=== PATIENT | female | born 1985 | race Caucasian/White ===

== ENCOUNTER → 2020-10-31 14:29 | Outpatient (CLI) | payer OTHER, SELFPAY ==
[2020-10-31 15:24] LABS: Add Manual Diff / Slide Review NO; Basophils Absolute Auto 0 /uL (0-100); Basophils Percent Auto 0.2 % (0-2); Eosinophils Absolute Auto 0 /uL (0-450); Eosinophils Percent Auto 0.2 % (2-4); Hematocrit 35.2 % (36-46); Lymphocytes Absolute Auto 1600 /uL (1100-4500); Lymphocytes Percent Auto 21.8 % (25-40); Mean Corpuscular HGB Conc 34.1 % (30-36); Mean Corpuscular Hemoglobin 31.3 PG (26-34); Mean Corpuscular Volume 91.6 fL (80-100); Monocytes Absolute Auto 300 /uL (0-900); Monocytes Percent Auto 3.6 % (3-14); Neutrophils Absolute Auto 5500 /uL (1500-7000); Neutrophils Percent Auto 74.2 % (50-75); Platelet Count 223 X10^3/uL (150-400); Red Blood Cell Count 3.84 X10^6/uL (4.0-5.2); Red Cell Distribution Width 12.6 % (11.6-14.8); White Blood Cell Count 7.4 X10^3/uL (4.5-11.0)
[2020-10-31 16:05] LABS: Hepatitis B Surface Antigen NEGATIVE s/c (NEGATIVE)
[2020-10-31 16:23] LABS: HIV 1 & 2 Ab/Ag 4th Gen Combo NEGATIVE (NEGATIVE); Hep C Virus Ab w/Reflex Quant NEGATIVE s/c (NEGATIVE)
[2020-11-01 08:13] LABS: RPR Screen Non Reactive (Non Reactive)
[2020-11-01 11:10] LABS: Varicella IgG Antibody 1082 index (Immune >165)
== END ==
PROVIDERS: Referring Provider Family Medicine; Visit Provider Family Medicine
DX: Z34.82 Encounter for supervision of other normal pregnancy, second trimester (principal)
CPT/HCPCS: 36415; 80055; 86787; 86803; 86850; 86900; 86901; 87389

== ENCOUNTER → 2020-11-16 10:14 | Outpatient (CLI) | payer OTHER, SELFPAY ==
--- NOTE | 2020-11-16 10:16 | DI.US.S_ITS ---
PROCEDURE: US OB >= 14 WEEKS FETUS INDICATIONS: ANATOMY OUTSIDE/PRIOR DATING DATA: Last menstrual period (LMP): 07/03/2020 . LMP-based estimated date of delivery (DUSTY): 06/10/2020 . First dating scan (date and location): 11/16/2020, [facility] Estimated date of delivery (DUSTY) from first dating scan: 04/04/2021 . TECHNIQUE: Real-time scanning was performed of the fetus, with image documentation and biometric measurements. Endovaginal scanning: Not required COMPARISON: None. FINDINGS: General: A single living intrauterine gestation is present. Presentation: Vertex. Placenta: Placental position is posterior , without previa. Amniotic fluid index: 13.6 cm, normal range is 5-24 cm. heart rate: 137 beats per minute. Maternal cervical canal: 4.7 cm long. Normal lower limit is 2.5 cm. biometrics: Biparietal diameter: 4.6 cm, 19 weeks 5 days Head circumference: 17.8 cm, 20 weeks 2 days Abdominal circumference: 15.1 cm, 20 weeks 3 days Femur length: 3.3 cm, 20 weeks 1 day Estimated gestational age from initial scan: not applicable. Composite gestational age from present scan: 20 weeks 1 day Estimated weight and percentile: 343 g, 89th percentile Measurement variability for biometric dating: +/- 7 days from 14 weeks to 15 weeks 6 days gestation, +/- 10 days from 16 weeks to 21 weeks 6 days gestation, +/- 2 weeks from 22 weeks to 27 weeks 6 days gestation, +/- 3 weeks for 28 weeks gestation or later. weight reference: 4500 g or EFW >90/95% is considered macrosomia or large for gestational age. EFW <10% is small for gestational age. EFW 5% or less is considered intra-uterine growth restriction. Anatomic survey: Neuro: Ventricles are non-dilated at less than 10 mm. Cisterna magna is normal at 3-11 mm. Cerebellum is normal in size and morphology. Nuchal skin fold: Normal at less than 6 mm between 14-21 weeks gestational age. Face: Nose and lips, facial profile are normal. Spine: No evidence for spina bifida. Heart: 4-chambered heart is present, with normal ventricular outflow tracts. Diaphragm: Diaphragm is intact. Stomach: Left-sided stomach is present. Kidneys: No hydronephrosis. Normal is less than 5 mm in 2nd trimester, less than 7 mm in 3rd trimester. Cord: 3-vessel cord has orthotopic insertion. Bladder: Normal in size. Extremities: All 4 extremities identified. IMPRESSION: 1. Living 2nd trimester intrauterine . 2. Current ultrasound age is 5 days greater than clinical age based on last menstrual period. There is no prior ultrasound for comparison. 3. Normal anatomy scan. Dictated by: Antonio Jonas M.D. on 11/16/2020 at 12:40 Approved by: Antonio Jonas M.D. on 11/16/2020 at 12:47
== END ==
PROVIDERS: Referring Provider Family Medicine; Visit Provider Family Medicine
DX: Z34.82 Encounter for supervision of other normal pregnancy, second trimester (principal); Z3A.20 20 weeks gestation of pregnancy
CPT/HCPCS: 76811

== ENCOUNTER → 2020-12-30 10:15 | Outpatient (CLI) | payer OTHER, SELFPAY ==
[2020-12-30 10:40] LABS: RBC Urine None Seen (0-5/HPF)
[2020-12-30 10:47] LABS: Appearance Urine UA CLEAR; Bilirubin Urine UA NEGATIVE (NEGATIVE); Color Urine UA YELLOW; Glucose Urine UA NEGATIVE (Negative); Ketones Urine UA NEGATIVE (NEGATIVE); Leukocyte Esterase Urine UA TRACE (NEGATIVE); Nitrite Urine UA NEGATIVE (Negative); Occult Blood Urine UA NEGATIVE (Negative); Protein Urine UA NEGATIVE (Negative); Specific Gravity Urine UA <=1.005 (1.000-1.035); Urobilinogen Urine UA 0.2 E.U./dL (0.2)
[2020-12-30 10:57] LABS: Bacteria Urine Moderate (10-30); Squamous Epithelial Cell Urine 1-5 /HPF (0-5/HPF); WBC Urine 1-5/HPF (0-5/HPF)
[2020-12-30 11:54] LABS: Add Manual Diff / Slide Review NO; Basophils Absolute Auto 0 /uL (0-100); Basophils Percent Auto 0.2 % (0-2); Eosinophils Absolute Auto 0 /uL (0-450); Eosinophils Percent Auto 0.3 % (2-4); Hematocrit 34.5 % (36-46); Lymphocytes Absolute Auto 1500 /uL (1100-4500); Lymphocytes Percent Auto 19.4 % (25-40); Mean Corpuscular HGB Conc 34.7 % (30-36); Mean Corpuscular Hemoglobin 32.4 PG (26-34); Mean Corpuscular Volume 93.3 fL (80-100); Monocytes Absolute Auto 300 /uL (0-900); Monocytes Percent Auto 3.6 % (3-14); Neutrophils Absolute Auto 5900 /uL (1500-7000); Neutrophils Percent Auto 76.5 % (50-75); Platelet Count 224 X10^3/uL (150-400); Red Cell Distribution Width 12.3 % (11.6-14.8); White Blood Cell Count 7.8 X10^3/uL (4.5-11.0)
[2020-12-30 12:48] LABS: GTT (PREG) 1 Hour PP 50gm Dose 105 mg/dL (76-139)
== END ==
PROVIDERS: PCP Family Medicine; Referring Provider Family Medicine; Visit Provider Family Medicine
DX: Z34.90 Encounter for supervision of normal pregnancy, unspecified, unspecified trimester (principal); R10.9 Unspecified abdominal pain; Z87.442 Personal history of urinary calculi; Z87.59 Personal history of other complications of pregnancy, childbirth and the puerperium
CPT/HCPCS: 36415; 81001; 82950; 85025; 87086

== ENCOUNTER → 2021-01-02 09:36 | Outpatient (CLI) | payer OTHER, SELFPAY ==
--- NOTE | 2021-01-02 | DI.US.S_ITS ---
PROCEDURE: US RENAL COMPLETE INDICATIONS: FLANK PAIN. HISTORY OF KIDNEY STONES TECHNIQUE: Real-time scanning was performed of the kidneys and bladder, with image documentation. COMPARISON: [facility], US, US OB >= 14 WEEKS FETUS, 11/16/2020, 10:28. [facility], RG, US OB FIRST TRIMESTER W TRANSVAG, 09/23/2020, 22:40. FINDINGS: Kidneys: Kidneys are normal in size. Right kidney measures 10.8 cm long; left kidney measures 12.5 cm long. Right renal cortical thickness is 1.1 cm; left renal cortical thickness is 1.1 cm. Renal cortical echotexture is normal. There is mild left-sided hydronephrosis. Within the left mid kidney, there is a 7 mm nonobstructing shadowing kidney stone. Within the left superior kidney, there is a nonshadowing hyperechoic focus that measures 5 x 9 x 4 mm. Bladder: Pre-void bladder volume is 188 mL. Post-void residual is 0 mL. Pre-void images demonstrate no intraluminal masses or stones. Within the urinary bladder, there is mild echogenic debris seen. On pre-void images, only the right ureteral jet can be seen with color Doppler interrogation. (Of note, ureteral jets may not be detectable in up to 25% of cases due to insufficient differences in specific gravity between ureteral and bladder urine). Miscellaneous: No free pelvic fluid. This patient is , with a measured heart rate of 149 beats per minute. IMPRESSION: Mild right-sided hydronephrosis. There is a mild amount of debris seen within the urinary bladder. Please correlate with UTI. There is a 7 mm nonobstructing left-sided kidney stone. Also on the left, there is a 9 mm nonshadowing hyperechoic focus, which most likely relates to a benign, fat containing lesion. Dictated by: Hayes Ramon M.D. on 01/02/2021 at 9:48 Approved by: Hayes Ramon M.D. on 01/02/2021 at 9:52
== END ==
PROVIDERS: PCP Family Medicine; Referring Provider Family Medicine; Visit Provider Family Medicine
DX: N13.30 Unspecified hydronephrosis (principal); N20.0 Calculus of kidney; R10.30 Lower abdominal pain, unspecified; Z87.442 Personal history of urinary calculi
CPT/HCPCS: 76770

== ENCOUNTER → 2021-02-10 10:35 | Outpatient (CLI) | payer OTHER, SELFPAY ==
--- NOTE | 2021-02-10 10:37 | DI.US.S_ITS ---
PROCEDURE: US OB LIMITED INDICATIONS: LARGE FOR DATES OUTSIDE/PRIOR DATING DATA: Last menstrual period (LMP): July 03, 2020 . LMP-based estimated date of delivery (DUSTY): April 09, 2021 . First dating scan (date and location): [facility], November 16, 2020 . Estimated date of delivery (DUSTY) from first dating scan: April 04, 2021 . TECHNIQUE: Real-time scanning was performed of the fetus, with image documentation and biometric measurements. COMPARISON: None. FINDINGS: General: A single living intrauterine gestation is present. Presentation: Cephalic. Placenta: Placental position is posterior , without previa. Amniotic fluid index: 14.9 cm, normal range is 5-24 cm. heart rate: 132 beats per minute. Maternal cervical canal: 3.8 cm long. biometrics: Biparietal diameter: 8.5 cm Head circumference: 30.4 cm Abdominal circumference: 29.1 cm Femur length: 6.1 cm Estimated gestational age from initial scan: not applicable. Composite gestational age from present scan: 33 weeks, 1 day Other: Not applicable. IMPRESSION: Single intrauterine gestation as detailed above. Dictated by: Tim Nogueira M.D. on 02/10/2021 at 15:15 Approved by: Tim Nogueira M.D. on 02/10/2021 at 15:18
== END ==
PROVIDERS: PCP Family Medicine; Referring Provider Family Medicine; Visit Provider Family Medicine
DX: O26.843 Uterine size-date discrepancy, third trimester (principal); Z36.88 Encounter for antenatal screening for fetal macrosomia; Z3A.33 33 weeks gestation of pregnancy
CPT/HCPCS: 76815

== ENCOUNTER → 2021-03-03 13:11 | Outpatient (CLI) | payer OTHER, SELFPAY ==
[2021-03-07 10:11] LABS: Strep Grp B PCR POS for Grp B Strep
== END ==
PROVIDERS: PCP Family Medicine; Visit Provider Family Medicine
DX: Z34.90 Encounter for supervision of normal pregnancy, unspecified, unspecified trimester (principal); Z3A.35 35 weeks gestation of pregnancy
CPT/HCPCS: 87653

== ENCOUNTER 2021-03-21 07:33 | Outpatient (CLI) | payer OTHER, SELFPAY ==
[2021-03-21 08:21] LABS: Hemoglobin 12.4 g/dL (12.0-16.0); Red Blood Cell Count 3.95 X10^6/uL (4.0-5.2)
[2021-03-21 08:24] LABS: Add Manual Diff / Slide Review NO; Basophils Absolute Auto 0 /uL (0-100); Basophils Percent Auto 0.4 % (0-2); Eosinophils Absolute Auto 0 /uL (0-450); Eosinophils Percent Auto 0.2 % (2-4); Hematocrit 35.9 % (36-46); Lymphocytes Absolute Auto 1700 /uL (1100-4500); Lymphocytes Percent Auto 24.1 % (25-40); Mean Corpuscular HGB Conc 34.6 % (30-36); Mean Corpuscular Hemoglobin 31.4 PG (26-34); Mean Corpuscular Volume 90.8 fL (80-100); Monocytes Absolute Auto 300 /uL (0-900); Neutrophils Absolute Auto 4900 /uL (1500-7000); Neutrophils Percent Auto 70.3 % (50-75); Platelet Count 151 X10^3/uL (150-400); Red Cell Distribution Width 12.7 % (11.6-14.8)
[2021-03-21 08:26] LABS: Alanine Aminotransferase 13 IU/L (<35); Albumin 3.6 g/dL (3.5-5.0); Albumin Globulin Ratio 1.3 (1.0-2.8); Alkaline Phosphatase 97 U/L (38-126); Aspartate Aminotransferase 21 IU/L (14-36); BUN Creatinine Ratio 10.9 (6-22); Bilirubin Total 0.4 mg/dL (0.2-1.3); Blood Urea Nitrogen 6 mg/dL (7-17); Calcium 8.7 mg/dL (8.4-10.2); Carbon Dioxide 17 mmol/L (22-32); Chloride 109 mmol/L (98-107); Estimated Glomerular Filt Rate > 60.0 mL/min (>60); Globulin 2.8 g/dL (1.7-4.1); Glucose 80 mg/dL (70-100); HEMOLYSIS < 15 (0-50); Potassium 3.7 mmol/L (3.4-5.1); Sodium 135 mmol/L (137-145); Total Protein 6.4 g/dL (6.3-8.2)
[2021-03-21 08:31] LABS: Creatinine Urine Random 79.5 mg/dL; Protein (Total) Urine Random 13 mg/dL (0-12); Protein Creatinine Ratio Urine 0.16 GRAM/24H
--- NOTE | 2021-03-21 08:37 | P.TNLD_ITS ---
Visit Information Visit Information Date of evaluation: 03/21/21 Primary OB Provider: Tanya Archibald Reason for Evaluation: Yes non-stress test non-stress test reason: hypertensi on/pre-eclampsia Comments/Additional reasons for admission: Pt is a 35yo at 37w2d who presented for NST and labs for newly diagnosed gestational hypertension. In clinic yesterday, her blood pressure was noted to be elevated. She had her young son with her, and needed to return home for childcare before coming back for NST and labs. Unfortunately, the bridge was then shut-down and she was unable to return. She did check her BP at the drug store last night, and it was in the low 160s over low 100s. At home then her BP was in the 150s/90-low 100s. She denies any headaches, vision changes, RUQ pain, swelling. She is feeling her baby move regularly. No LOF, vaginal bleeding, contractions. [facility] Medical History (Updated 03/21/21 @ 08:40 by Tanya Archibald MD) Abnormal Pap smear of cervix (~1999) AMA (advanced maternal age) multigravida 35+ Genital herpes (~07/2003) Heart palpitations (~2017) SAB (spontaneous ) (~2007) (spontaneous vaginal delivery) Surgical History (Updated 10/28/20 @ 14:25 by Juliet Cole RN) History of removal of skin mole (~2019) S/P dilation and curettage (~2007) Family History (Updated 11/01/20 @ 20:43 by Margot Teran) Father Alcohol abuse by father Mother Diabetes mellitus Grandfather Stroke Grandmother Cancer Breast cancer Grandfather No problems noted. Grandmother Dementia Sister Twin Social History marital status: number of children: 5 household members: spouse and children lives independently: Yes caregiver/support person: No housing: house pets and animals: Yes (2 dogs: safe.) education level: high school occupational status: unemployed (Homemaker.) current occupational exposures/hazards: No special jacqueline needs: No seatbelt use: always do you feel safe at home: Yes Smoking Status: Former smoker (1/2 pack per day) Tobacco: How many years used: 2 quit status: quit date established (Quit 2004.) second hand exposure: Yes alcohol intake: former (pre- : occasional) substance use type: does not use during the past year weight has: remained stable well-balanced diet: daily or most days daily servings fruits/ve-4 caffeine: Yes (X 1 per day) eating out: 4 or more times/week Type(s) of exercise: walking, bicycling (Peloton bike.) and normal ROM and activity (Busy mom to 5 children.) frequency: daily Objective Labs Result Diagrams: 03/21/21 08:19 03/21/21 08:19 Labs: Laboratory Results - last 24 hr 03/21/21 03/21/21 03/21/21 08:19 08:19 08:19 WBC 7.0 RBC 3.95 L Hgb 12.4 Hct 35.9 L MCV 90.8 MCH 31.4 MCHC 34.6 RDW 12.7 Plt Count 151 Neut % (Auto) 70.3 Lymph % (Auto) 24.1 L [place] % (Auto) 5.0 Eos % (Auto) 0.2 L Baso % (Auto) 0.4 Neut # (Auto) 4900 Lymph # (Auto) 1700 [place] # (Auto) 300 Eos # (Auto) 0 Baso # (Auto) 0 Sodium 135 L Potassium 3.7 Chloride 109 H Carbon Dioxide 17 L BUN 6 L Creatinine 0.55 Estimated GFR > 60.0 BUN/Creatinine Ratio 10.9 Glucose 80 Calcium 8.7 Total Bilirubin 0.4 AST 21 ALT 13 Alkaline Phosphatase 97 Total Protein 6.4 Albumin 3.6 Globulin 2.8 Albumin/Globulin Ratio 1.3 U Random Total Protein 13 H Urine Creatinine 79.5 Protein/Creatinin Ratio 0.16 Evaluation Evaluation Baseline heart rate: 150 Variability: Moderate (11-25) monitor accelerations: Present Monitor Decelerations: Absent Category of Tracing: Reactive Diagnosis, Plan/Disposition Final Diagnosis (1) Gestational hypertension: Status: Acute Plan/Disposition Plan: Pt is a 35yo at 37w2d who presented for NST and labs for newly diagnosed gestational hypertension. No evidence of pre-eclampsia/HELLP on labs. BP not in severe range. NST reactive. Recommend induction. Working with L&D on scheduling for this week. Pt safe to return home for now with strict return precautions. Will contact her about timing of induction. OB Disposition: home
== END 2021-03-21 09:40 | disposition home or self-care (01) ==
LOC: LABOR 08:23 → OB 03-22 07:41
PROVIDERS: PCP Family Medicine; Referring Provider Family Medicine; Visit Provider Family Medicine
DX: O13.3 Gestational [pregnancy-induced] hypertension without significant proteinuria, third trimester (principal); Z3A.37 37 weeks gestation of pregnancy
CPT/HCPCS: 59025; 80053; 82570; 84156; 85025; G0378; G0379

== ENCOUNTER 2021-03-24 07:38 | Outpatient (CLI) | payer OTHER, SELFPAY ==
--- NOTE | 2021-03-24 08:09 | P.TNLD_ITS ---
Visit Information Visit Information Date of evaluation: 03/24/21 Primary OB Provider: Tanya Archibald Reason for Evaluation: Yes non-stress test non-stress test reason: hypertension/pre-eclampsia Comments/Additional reasons for admission: Pt is a 35yo at 37w5d here for NST for gestational hypertension. She is feeling her baby move regularly. She denies any LOF or vaginal bleeding. No headaches, vision changes, RUQ pain, worsening edema. [facility] Medical History (Updated 03/21/21 @ 08:40 by Tanya Archibald MD) Abnormal Pap smear of cervix (~1999) AMA (advanced maternal age) multigravida 35+ Genital herpes (~07/2003) Heart palpitations (~2017) SAB (spontaneous ) (~2007) (spontaneous vaginal delivery) Surgical History (Updated 10/28/20 @ 14:25 by Juliet Cole RN) History of removal of skin mole (~2019) S/P dilation and curettage (~2007) Family History (Updated 11/01/20 @ 20:43 by Margot Teran) Father Alcohol abuse by father Mother Diabetes mellitus Grandfather Stroke Grandmother Cancer Breast cancer Grandfather No problems noted. Grandmother Dementia Sister Twin Social History marital status: number of children: 5 household members: spouse and children lives independently: Yes caregiver/support person: No housing: house pets and animals: Yes (2 dogs: safe.) education level: high school occupational status: unemployed (Homemaker.) current occupational exposures/hazards: No special jacqueline needs: No seatbelt use: always do you feel safe at home: Yes Smoking Status: Former smoker (1/2 pack per day) Tobacco: How many years used: 2 quit status: quit date established (Quit 2004.) second hand exposure: Yes alcohol intake: former (pre- : occasional) substance use type: does not use during the past year weight has: remained stable well-balanced diet: daily or most days daily servings fruits/ve-4 caffeine: Yes (X 1 per day) eating out: 4 or more times/week Type(s) of exercise: walking, bicycling (Peloton bike.) and normal ROM and activity (Busy mom to 5 children.) frequency: daily Evaluation Evaluation Baseline heart rate: 140 Variability: Moderate (11-25) monitor accelerations: Present Monitor Decelerations: Absent Category of Tracing: Reactive Diagnosis, Plan/Disposition Final Diagnosis (1) Gestational hypertension: Status: Acute Plan/Disposition Plan: Pt is a 35yo at 37w5d here for NST for gestational hypertension. NST reactive. Labs completed earlier this week reassuring. IOL scheduled for 03/26, pt requested no induction this week after discussion of risks vs benefits. OB Disposition: home
== END 2021-03-24 08:20 | disposition home or self-care (01) ==
LOC: LABOR 08:05 → OB 03-29 07:10
PROVIDERS: PCP Family Medicine; Referring Provider Family Medicine; Visit Provider Family Medicine
DX: O13.3 Gestational [pregnancy-induced] hypertension without significant proteinuria, third trimester (principal); Z3A.37 37 weeks gestation of pregnancy
CPT/HCPCS: 59025; G0378; G0379

== ENCOUNTER 2021-03-26 19:38 | Inpatient (IN) | payer OTHER, SELFPAY ==
[2021-03-26 22:04] LABS: Add Manual Diff / Slide Review NO; Basophils Absolute Auto 0 /uL (0-100); Basophils Percent Auto 0.2 % (0-2); Eosinophils Absolute Auto 0 /uL (0-450); Eosinophils Percent Auto 0.1 % (2-4); Hematocrit 36.7 % (36-46); Hemoglobin 12.7 g/dL (12.0-16.0); Lymphocytes Absolute Auto 2400 /uL (1100-4500); Lymphocytes Percent Auto 26.1 % (25-40); Mean Corpuscular HGB Conc 34.8 % (30-36); Mean Corpuscular Hemoglobin 31.7 PG (26-34); Mean Corpuscular Volume 91.3 fL (80-100); Monocytes Absolute Auto 600 /uL (0-900); Neutrophils Absolute Auto 6200 /uL (1500-7000); Neutrophils Percent Auto 67.6 % (50-75); Platelet Count 169 X10^3/uL (150-400); Red Blood Cell Count 4.02 X10^6/uL (4.0-5.2); Red Cell Distribution Width 12.6 % (11.6-14.8); White Blood Cell Count 9.1 X10^3/uL (4.5-11.0)
[2021-03-26 22:18] LABS: Alanine Aminotransferase 13 IU/L (<35); Albumin 3.6 g/dL (3.5-5.0); Albumin Globulin Ratio 1.2 (1.0-2.8); Alkaline Phosphatase 110 U/L (38-126); Aspartate Aminotransferase 17 IU/L (14-36); Bilirubin Total 0.2 mg/dL (0.2-1.3); Blood Urea Nitrogen 11 mg/dL (7-17); Calcium 9.2 mg/dL (8.4-10.2); Carbon Dioxide 19 mmol/L (22-32); Chloride 108 mmol/L (98-107); Estimated Glomerular Filt Rate > 60.0 mL/min (>60); Globulin 2.9 g/dL (1.7-4.1); Glucose 120 mg/dL (70-100); HEMOLYSIS < 15 (0-50); Potassium 3.6 mmol/L (3.4-5.1); Sodium 133 mmol/L (137-145); Total Protein 6.5 g/dL (6.3-8.2)
[2021-03-26 22:20] LABS: Creatinine Urine Random 39.3 mg/dL; Protein (Total) Urine Random 21 mg/dL (0-12); Protein Creatinine Ratio Urine 0.53 GRAM/24H
[2021-03-26 23:38] LABS: COVID19 -Nasal RAPID Negative (Negative)
[2021-03-27 05:32] LABS: Add Manual Diff / Slide Review NO; Basophils Absolute Auto 0 /uL (0-100); Basophils Percent Auto 0.5 % (0-2); Eosinophils Absolute Auto 0 /uL (0-450); Eosinophils Percent Auto 0.3 % (2-4); Hematocrit 37.6 % (36-46); Lymphocytes Absolute Auto 2000 /uL (1100-4500); Mean Corpuscular HGB Conc 34.6 % (30-36); Mean Corpuscular Hemoglobin 31.6 PG (26-34); Mean Corpuscular Volume 91.2 fL (80-100); Monocytes Absolute Auto 400 /uL (0-900); Monocytes Percent Auto 5.2 % (3-14); Neutrophils Absolute Auto 4800 /uL (1500-7000); Platelet Count 158 X10^3/uL (150-400); Red Blood Cell Count 4.12 X10^6/uL (4.0-5.2); Red Cell Distribution Width 12.6 % (11.6-14.8); White Blood Cell Count 7.3 X10^3/uL (4.5-11.0)
[2021-03-27 05:41] LABS: Aspartate Aminotransferase 16 IU/L (14-36); BUN Creatinine Ratio 16.7 (6-22); Blood Urea Nitrogen 10 mg/dL (7-17); Estimated Glomerular Filt Rate > 60.0 mL/min (>60); Uric Acid 5.4 mg/dL (2.5-6.2)
[2021-03-27] MEDS: LACTATED RINGERS 1,000 ML 100 ML IV (06:40)
[2021-03-27] MEDS: PENICILLIN G POTASSIUM 5,000,000 UNIT in DEXTROSE 5% IN WATER 250 ML IV (06:42)
[2021-03-27 08:19] VITALS: BP 133/88
[2021-03-27] MEDS: OXYTOCIN PREMIX 30 UNIT/500 ML PLAST..BAG IV (09:02)
[2021-03-27] MEDS: PENICILLIN G POTASSIUM 3,000,000 UNIT/50 ML FROZ.PIGGY 100 UNIT IV ×2 (10:56→14:56)
--- NOTE | 2021-03-27 13:33 | P.HPOB_ITS ---
OB HPI Date/Time Date of admission: 03/26/22 Date Patient Seen: 03/27/21 History of Present Condition Chief complaint: INDUCTION DUSTY Calculator Estimated Delivery Date Method Current WG Current Estimate 04/09/21 LMP (Certain) 38w 1d Other Estimates 04/01/21 Ultrasound #1 39w 2d Estimated Gestational Age (weeks): 38w1d : 7 Para: 5 Narrative: Pt is a 35yo at 38w1d here for IOL for gestational hypertension diagnosed at 37wks. Pt declined IOL until this time. Currently asymptomatic without headache, vision changes, RUQ pain, worsening swelling. BPs at home have consistently been in the 140/90s. She is feeling her baby move regularly. No LOF, vaginal bleeding, or contractions prior to admission. Now with regular cramping. otherwise complicated by hx of HSV, on acyclovir prophylaxis. Also with baby at 89th percentile at anatomy scan, 83rd percentile at 32 weeks. care: good care, initiated at week # (10) and pounds weight gain (14) Dating criteria OB: LMP confirmed by 1st trimester US Ultrasounds: normal 1st trimester US and normal mid trimester US (89th percentile size) Obstetrical complications: gestational hypertension Medical complications OB: other (hx of hsv on acyclovir) Indications Indication for induction OB: gestational HTN/pre-eclampsia Preadmission Labs Last OB Lab Results: Blood Type AB Positive 03/26/21 21:00 03/26/21 Antibody Screen Negative 03/26/21 21:00 03/26/21 Hematocrit 37.6 % (36-46) 03/27/21 05:20 03/27/21 Hemoglobin 13.0 g/dL (12.0-16.0) 03/27/21 05:20 03/27/21 Hepatitis B Surface Antigen Negative s/c (NEGATIVE) 10/31/20 14:35 10/31/20 Hepatitis C Antibody Negative s/c (NEGATIVE) 10/31/20 14:35 10/31/20 Rubella Antibody 6.0 IU/mL (>15) L 10/31/20 14:35 10/31/20 Varicella-Zoster IgG Antibody 1082 index (Immune >165) 10/31/20 14:35 10/31/20 Glucose 1 Hour 105 mg/dL (76-139) 12/30/20 11:24 12/30/20 Group B Streptococcus (PCR) Pos for grp b strep H 03/03/21 13:11 03/03/21 -: Chlamydia screen: negative, Gonorrhea screen: negative and Urine: negative Genetic Screens: Cell-free DNA: Normal External Labs -: Urine: negative Prior (ies) Past Pregnancies Del. Date GA/Weeks Labor Lgth Wt Sex Route Outcome Anesthesia Place Delv Breastfeed Preg Comp Name 11/29/05 39.3 10 8 lb 11 oz Male vaginal live - full term e pidural [facility] 12 mos. Acid reflux. other Mitul 04/15/07 40 5 8 lb 9 oz [facility] Marlo 04/05/08 8-12 spontaneous spontaneous 05/01/09 40 5 8 lb 8 oz Male vaginal live - full term ep [facility] 12 mos none Óscar 04/14/11 40 3 8 lb 6 oz Female vaginal live - full term ep [facility] 12 mos. none Baylee 03/03/19 41 1 8 lb 7 oz Male vaginal live - full term ep [facility] 2 yrs post-dates induction [place] Delivery Date: 11/29/05 Last Updated by: Alee Lopez Dr. delivered with vacuum and forceps. Tear w repair. Delivery Date: 04/05/08 Last Updated by: Rosie Berg R.N. SAB with D&C Delivery Date: 03/03/19 Last Updated by: Rosie Berg R.N. *Induction due to Post-dates. Evaluation Evaluation Baseline heart rate: 135 Variability: Moderate (11-25) monitor accelerations: Present Monitor Decelerations: Absent Contraction Frequency (minutes): 2 Status: Category l Dilation (cm): 1 Effacement (%): 25 Dilation: 1-2 cm Effacement: 0-30% station: -4 Position of cervix: mid Consistency: soft Watson score: 4 [facility] Medical History (Updated 03/21/21 @ 08:40 by Tanya Archibald MD) Abnormal Pap smear of cervix (~1999) AMA (advanced maternal age) multigravida 35+ Genital herpes (~07/2003) Heart palpitations (~2017) SAB (spontaneous ) (~2007) (spontaneous vaginal delivery) Surgical History (Updated 10/28/20 @ 14:25 by Juliet Cole RN) History of removal of skin mole (~2019) S/P dilation and curettage (~2007) Family History (Updated 11/01/20 @ 20:43 by Margot Teran) Father Alcohol abuse by father Mother Diabetes mellitus Grandfather Stroke Grandmother Cancer Breast cancer Grandfather No problems noted. Grandmother Dementia Sister Twin Social History marital status: number of children: 5 household members: spouse and children lives independently: Yes caregiver/support person: No housing: house pets and animals: Yes (2 dogs: safe.) education level: high school occupational status: unemployed (Homemaker.) current occupational exposures/hazards: No special jacqueline needs: No seatbelt use: always do you feel safe at home: Yes Smoking Status: Former smoker Tobacco: How many years used: 2 quit status: quit date established (Quit 2004.) second hand exposure: Yes alcohol intake: former (pre- : occasional) substance use type: does not use during the past year weight has: remained stable well-balanced diet: daily or most days daily servings fruits/ve-4 caffeine: Yes (X 1 per day) eating out: 4 or more times/week Type(s) of exercise: walking, bicycling (Peloton bike.) and normal ROM and activity (Busy mom to 5 children.) frequency: daily Meds Home Medications and Allergies Home Medications Medication Instructions Recorded Confirmed Type prenat.vits,demetris,yak-rzem-gmegt 1 tab PO DAILY 10/28/20 10/28/20 History hydrocodone 5 mg-acetaminophen 325 1 tab PO Q8H PRN #20 tab 12/30/20 Rx mg tablet tamsulosin 0.4 mg capsule (Flomax) 0.4 mg PO DAILY #20 cap 01/02/21 Rx acyclovir 400 mg tablet 400 mg PO TID #90 tab 03/20/21 03/20/21 Rx Allergies Allergy/AdvReac Type Severity Reaction Status Date / Time No Known Drug Allergies Allergy Verified 02/17/21 12:10 OB Exam Narrative Exam Narrative: Gen: NAD, sitting comfortably in bed, appears well CV: RRR, no murmurs Resp: clear to auscultation bilaterally Abd: soft, gravid, nontender Ext: trace edema bilaterally Neuro: 1+ bilateral patellar reflexes, no clonus Objective Labs Result Diagrams: 03/27/21 05:20 03/27/21 05:20 Labs: Laboratory Results - last 24 hr 03/26/21 03/26/21 03/26/21 21:00 21:00 21:38 WBC 9.1 RBC 4.02 Hgb 12.7 Hct 36.7 MCV 91.3 MCH 31.7 MCHC 34.8 RDW 12.6 Plt Count 169 Neut % (Auto) 67.6 Lymph % (Auto) 26.1 Nye % (Auto) 6.0 Eos % (Auto) 0.1 L Baso % (Auto) 0.2 Neut # (Auto) 6200 Lymph # (Auto) 2400 Nye # (Auto) 600 Eos # (Auto) 0 Baso # (Auto) 0 Sodium Potassium Chloride Carbon Dioxide BUN Creatinine Estimated GFR BUN/Creatinine Ratio Glucose Uric Acid Calcium Total Bilirubin AST ALT Alkaline Phosphatase Total Protein Albumin Globulin Albumin/Globulin Ratio U Random Total Protein 21 H Urine Creatinine 39.3 Protein/Creatinin Ratio 0.53 SARS-CoV-2 (PCR) Blood Type AB Positive Antibody Screen Negative 03/26/21 03/26/21 03/27/21 21:43 22:00 05:20 WBC 7.3 RBC 4.12 Hgb 13.0 Hct 37.6 MCV 91.2 MCH 31.6 MCHC 34.6 RDW 12.6 Plt Count 158 Neut % (Auto) 66.0 Lymph % (Auto) 28.0 Nye % (Auto) 5.2 Eos % (Auto) 0.3 L Baso % (Auto) 0.5 Neut # (Auto) 4800 Lymph # (Auto) 2000 [place]ye # (Auto) 400 Eos # (Auto) 0 Baso # (Auto) 0 Sodium 133 L Potassium 3.6 Chloride 108 H Carbon Dioxide 19 L BUN 11 Creatinine 0.61 Estimated GFR > 60.0 BUN/Creatinine Ratio 18.0 Glucose 120 H Uric Acid Calcium 9.2 Total Bilirubin 0.2 AST 17 ALT 13 Alkaline Phosphatase 110 Total Protein 6.5 Albumin 3.6 Globulin 2.9 Albumin/Globulin Ratio 1.2 U Random Total Protein Urine Creatinine Protein/Creatinin Ratio SARS-CoV-2 (PCR) Negative Blood Type Antibody Screen 03/27/21 05:20 WBC RBC Hgb Hct MCV MCH MCHC RDW Plt Count Neut % (Auto) Lymph % (Auto) Nye % (Auto) Eos % (Auto) Baso % (Auto) Neut # (Auto) Lymph # (Auto) Nye # (Auto) Eos # (Auto) Baso # (Auto) Sodium Potassium Chloride Carbon Dioxide BUN 10 Creatinine 0.60 Estimated GFR > 60.0 BUN/Creatinine Ratio 16.7 Glucose Uric Acid 5.4 Calcium Total Bilirubin AST 16 ALT Alkaline Phosphatase Total Protein Albumin Globulin Albumin/Globulin Ratio U Random Total Protein Urine Creatinine Protein/Creatinin Ratio SARS-CoV-2 (PCR) Blood Type Antibody Screen Assessment and Plan Assessment and Plan Assessment and Plan narrative: Pt is a 35yo at 38w1d here for IOL for gestational hypertension, shown to be pre-eclampsia without severe features at admission based on elevated protein/creatinine ratio. No evidence of HELLP. BPs have remained out of severe range. otherwise complicated by hx of HSV, on acyclovir prophylaxis without lesions present. GBS positive, Rh positive. Pt received c ytotec overnight with minimal cervical change, however, now cramping regularly. - Expectant management, anticipate - Watson score not favorable. Discussed cervantes vs pitocin. Due to multiple prio r deliveries and consistent cramping will trial Pitocin. If without change, will re-evaluate and reconsider cervantes catheter. - GBS positive, start prophylaxis now with penicillin - FHT reassuring - Epidural for pain control when desired - Continue to monitor BPs closely. MgSO4 if to severe range.
[2021-03-27] MEDS: CALCIUM CARBONATE 500 MG TAB 1000 MG PO (14:13)
[2021-03-27] MEDS: ONDANSETRON 4 MG/2 ML INJ IV (15:53)
--- NOTE | 2021-03-27 16:38 | P.PCNOB_ITS ---
Events: Induced HTN and Pre-Eclampsia Labor & Delivery Delivery date: 03/27/21 Intrapartal Events: Precipitous Labor < 3 hours Cervical ripening method: per misoprostal protocol Induction method: per pitocin protocol Delivery monitor: external FHT Route of delivery: Episiotomy description: None L&D Laceration Description: None Estimated blood loss (mL): 100 Anesthesia Type: None Complications: None Narrative: PROCEDURE: at 38w1d presented for IOL due to gestational hypertension, shown to have pre-eclampsia at admission and was admitted to Labor and Delivery. She received cytotec for induction, followed by pitocin. She received adequate GBS prophylaxis with penicillin. The patient progressed through the 1st stage over 1.5 hours. She had SROM with clear fluid present. Pain was controlled with natural methods. The pt had a precipitous vaginal delivery of a viable female infant with APGARs 8/9 at 16:16 after a single push. The cords was cut a nd clamped after it stopped pulsating. The perineum and vagina were inspected with no lacerations. PREPROCEDURE DIAGNOSIS: Intrauterine at 38w1d Pre-eclampsia without severe features GBS positive RH negative POSTPROCEDURE DIAGNOSIS: Intrauterine at 38w1d, delivered Same as preprocedure Precipitous delivery Baby 1: gender: Female Presentation: vertex Placenta delivery description: Spontaneous Cord Vessel Description: 3 Vessels score (1 min): 8 score (5 min): 9 weight: 7 lb 0.559 oz Plan for aftercare: Routine care and Other (monitor BPs closely)
[2021-03-27] MEDS: ACETAMINOPHEN 325 MG TABLET 650 MG PO ×2 (17:00→22:21)
[2021-03-27] MEDS: IBUPROFEN 600 MG TABLET PO ×2 (17:02→22:54)
[2021-03-27 22:53] VITALS: BP 154/103; PULSE 87
[2021-03-27] MEDS: LANOLIN OINT 7 GM 1 APPLIC TOP (22:53)
[2021-03-27] MEDS: LABETALOL 100 MG TABLET PO (22:53)
[2021-03-27] MEDS: DERMOPLAST SPRAY 20% 60 ML 1 SPRAY TOP (22:53)
[2021-03-28] MEDS: IBUPROFEN 600 MG TABLET PO ×2 (08:52→15:14)
[2021-03-28] MEDS: DOCUSATE 100 MG CAPSULE PO (08:52)
[2021-03-28 08:53] VITALS: BP 150/95; PULSE 81
[2021-03-28] MEDS: PRENATAL VIT,CALC/IRON/FOLIC 1 TABLET 1 TAB PO (08:53)
[2021-03-28] MEDS: LABETALOL 100 MG TABLET PO (08:53)
[2021-03-28] MEDS: ACETAMINOPHEN 325 MG TABLET 650 MG PO ×2 (08:53→15:14)
[2021-03-28 10:00] VITALS: BP 118/70; PULSE 91
--- NOTE | 2021-03-28 15:03 | PM.OBDS.1 ---
Discharge Providers Provider Date of admission: 03/26/21 19:38 Discharge Date: 03/28/21 Primary care physician: Tanya Archibald MD Consults: 03/28/21 16:36 Consult to Hvac Service Technician Routine Comment: Discharge provider: Tanya Archibald MD Summary Hospital Course Date Patient Seen: 03/28/21 Time Patient Seen: 07:50 Diagnoses: 38w1d gestation Pre-eclampsia without severe features GBS positive Rh positive Hospital Course: The pt presented for IOL due to gestational hypertension, found to have pre-eclampsia at admission. She received cytotec followed by pitocin. She received adequate GBS prophylaxis with penicillin. She had SROM and then a precipitous vaginal delivery of a viable baby girl. There were no lacerations. The pts BPs remained in acceptable range throughout labor. , her BPs did rise to > 150 systolic. She was started on 100mg Labetalol BID with good control of her BPs. At the time of discharge she was voiding, ambulating, and passing flatus without difficulty. Her lochia was decreasing appropriately. Her pain was well controlled. She was with good latch. Her plans to get a vasectomy for contraception. Peripartum Data Infant Delivery Method: Natural Vaginal Laceration Description: None Episiotomy description: None Procedures: Spontaneous vaginal delivery complications: none [place] 1: Gender: Female Disposition of : home Discharge Diagnosis (1) Pre-eclampsia: Status: Acute (2) (spontaneous vaginal delivery): Status: Acute Status at Discharge Cognitive/behavioral status at discharge: oriented Functional status at discharge: independent ambulation Overall status at discharge: patient is progressing back to baseline Time Spent with Patient Time attestation: Total time spent providing and/or coordinating discharge services: Objective Labs Result Diagrams: 03/27/21 05:20 03/27/21 05:20 Exam Vital Signs (past 8 hours): - 03/28/21 08:53 03/28/21 10:00 Pulse Rate 81 91 H Blood Pressure 150/95 H 118/70 Narrative Exam Narrative: Gen: NAD, sitting comfortably in bed, appears well CV: RRR, no murmurs Resp: clear to auscultation bilaterally Abd: soft, appropriately tender, fundus firm and below the umbilicus, nondistended Ext: no edema Discharge Plan Discharge Plan Patient Disposition: Home Discharge orders & Medications Prescriptions: New acetaminophen 325 mg Tablet 650 mg PO Q6HR PRN (Reason: Pain, Mild (1-3)) Qty: 30 0RF docusate sodium 100 mg Capsule 100 mg PO DAILY Qty: 30 0RF ibuprofen 600 mg Tablet 600 mg PO Q6HR PRN (Reason: Pain, Mild (1-3)) Qty: 30 0RF labetalol 100 mg Tablet 100 mg PO BID Qty: 60 2RF Continued prenat.vits,demetris,[id number] Tablet 1 tab PO DAILY 0RF Follow up/Referrals: Tanya Archibald MD [Primary Care Provider] - 04/05/21 11:00 am Diet/Activity/Treatments Diet: Diet as Tolerated and Regular Visit Report/Discharge Packet Instructions: DI for Labor and Delivery, Vaginal Stand Alone Forms: Discharge: Care Visit Report Forms: Patient Portal/API, Stroke Signs & Symptoms Discharge Data Primary Care Provider: Tanya Archibald Discharges patient from system. Discharge Date/Time: 03/28/21 18:40
[2021-03-28 17:08] VITALS: BP 143/80; PULSE 91; RESP 16; TEMP 36.5
[2021-03-28] MEDS: MEASLES,MUMPS,RUBELLA VACC/PF 0.5 ML VIAL SUBCUT (18:04)
== END 2021-03-28 18:40 | disposition home or self-care (01) | DRG 806 ==
PROVIDERS: Admitting Provider Family Medicine; PCP Family Medicine; Referring Provider Family Medicine; Visit Provider Family Medicine
DX: O14.04 Mild to moderate pre-eclampsia, complicating childbirth (principal); O98.52 Other viral diseases complicating childbirth; Z37.0 Single live birth; O13.4 Gestational [pregnancy-induced] hypertension without significant proteinuria, complicating childbirth; O62.3 Precipitate labor; Z3A.38 38 weeks gestation of pregnancy; B00.9 Herpesviral infection, unspecified; O99.824 Streptococcus B carrier state complicating childbirth; Z20.822 Contact with and (suspected) exposure to COVID-19
CPT/HCPCS: 36415; 59050; 59200; 59410; 80053; 82570; 82962; 84156; 84450; 84550; 85025; 86850; 86900; 86901; 87635; C9803; G0379; J2405; J2540; J2590

== ENCOUNTER 2023-07-31 09:11 | Day surgery (SDC) | payer OTHER, SELFPAY ==
[2023-07-31] VITALS (8 sets, daily range): BP systolic 96–124; BP diastolic 58–81; PULSE 83–101; RESP 12–25; TEMP 36.4–36.5; O2SAT 97–100
--- NOTE | 2023-07-31 08:51 | PM.OP.COLON ---
Operative Date/Time/Diagnoses Date of procedure: 07/31/23 Pre-op diagnosis: See indication and findings Procedure & Clinicians Study performed: Colonoscopy Indications: Rectal bleeding Surgeon: Pankaj Baig Procedure Notes Procedure in detail: After informed consent was obtained the patient was placed in left lateral decubitus position. The video colonoscope was introduced the rectum slowly advanced cecum. Preparation was good. On slow withdrawal mucosa was carefully examined. The scope was removed. The patient tolerated procedure well. Blood loss none Complications none Sedation mac Findings 1. Moderate internal hemorrhoids 2. Otherwise negative colonoscopy to cecum Patient should have follow-up colonoscopy in 10 years. There has been no further bleeding at this time.
--- NOTE | 2023-07-31 09:32 | P.HP_ITS ---
History of Present Illness History of Present Illness Date Patient Seen: 07/31/23 Chief complaint: Colonoscopy Narrative: Rectal bleeding [facility] Medical History (Updated 04/07/21 @ 14:04 by Tanya Archibald MD) Abnormal Pap smear of cervix (~1999) Genital herpes (~07/2003) AMA (advanced maternal age) multigravida 35+ SAB (spontaneous ) (~2007) Heart palpitations (~2017) (spontaneous vaginal delivery) Surgical History (Updated 10/28/20 @ 14:25 by Juliet Cole RN) History of removal of skin mole (~2019) S/P dilation and curettage (~2007) Family History (Updated 11/01/20 @ 20:43 by Margot Teran) Father Alcohol abuse by father Mother Diabetes mellitus Grandfather Stroke Grandmother Cancer Breast cancer Grandfather No problems noted. Grandmother Dementia Sister Twin Social History marital status: number of children: 5 household members: spouse and children lives independently: Yes caregiver/support person: No housing: house pets and animals: Yes (2 dogs: safe.) education level: high school occupational status: unemployed current occupational exposures/hazards: No special jacqueline needs: No seatbelt use: always do you feel safe at home: Yes Smoking Status: Former smoker Tobacco: How many years used: 2 quit status: quit date established second hand exposure: Yes alcohol intake: current substance use type: does not use during the past year weight has: remained stable well-balanced diet: daily or most days daily servings fruits/ve-4 caffeine: Yes (X 1 per day) eating out: 4 or more times/week Type(s) of exercise: walking, bicycling and normal ROM and activity frequency: daily Meds Home Medications and Allergies Home Medications Medication Instructions Recorded Confirmed Type prenat.vits,demetris,[id number] 1 tab PO DAILY 10/28/20 07/31/23 History acetaminophen 325 mg tablet 650 mg (2 x 325 mg) PO Q6HR PRN 03/28/21 07/31/23 Rx Pain, Mild (1-3) #30 tabs ibuprofen 600 mg tablet 600 mg PO Q6HR PRN Pain, Mild 03/28/21 07/31/23 Rx (1-3) #30 tabs Allergies Allergy/AdvReac Type Severity Reaction Status Date / Time No Known Drug Allergies Allergy Verified 07/31/23 09:24 Exam Narrative Exam Narrative: Oropharynx free of lesions Chest clear to auscultation percussion Cardiac exam reveals no S3 or murmur Assessment & Plan Assessment & Plan narrative: Rectal bleeding rule out perirectal source. Risks, benefits, alternatives have been explained.
[2023-07-31] MEDS: LACTATED RINGERS 1,000 ML 100 ML IV (09:39)
== END 2023-07-31 10:28 | disposition home or self-care (01) ==
PROVIDERS: PCP Family Medicine; Referring Provider Internal Medicine Gastroenterology; Visit Provider Internal Medicine Gastroenterology
PROC: 0DJD8ZZ Inspection of Lower Intestinal Tract, Via Natural or Artificial Opening Endoscopic (ICD-10-PCS; CPT 45378; principal; 2023-07-31 10:00)
DX: K64.8 Other hemorrhoids (principal)
CPT/HCPCS: 45378; J2704

== ENCOUNTER 2024-11-01 06:12 | Emergency (ER) | payer OTHER, SELFPAY ==
[2024-11-01 06:22] VITALS: BP 165/86; PULSE 103; RESP 20; TEMP 36.6; O2SAT 98; BMI 24.7
--- NOTE | 2024-11-01 06:41 | ED_ITS ---
HPI - Overdose General Chief Complaint: Toxicology Problem Stated Complaint: Accidental over dose (tylenol) Time Seen by Provider: 11/01/24 06:20 Source: patient Mode of arrival: Ambulatory History of Present Illness HPI Narrative: 38-year-old female history of anxiety reports taking for tablets of Tylenol 500 mg last night 2 pills for her 13-year-old daughter who gets migraine and 2 pills for herself but has no recall or recollection of taking the pills and her daughter reports not getting any Tylenol last night. Patient has 6 kids total including a 3-year-old and a 5-year-old and was concerned that may have been accidentally ingested by either 1 of them. She searched around the house for 1 hour but was unable to find any. There is still a full bottle of Tylenol that is capped without any missing. Other than what is stated 14 point review of system is negative. Related Data Home Medications ?Medication ?Instructions ?Recorded ?Confirmed prenat.vits,demetris,[id number] 1 tab PO DAILY 10/28/20 07/31/23 Previous Rx's ?Medication ?Instructions ?Recorded acetaminophen 325 mg tablet 650 mg (2 x 325 mg) PO Q6H R PRN 03/28/21 Pain, Mild (1-3) #30 tabs ibuprofen 600 mg tablet 600 mg PO Q6HR PRN Pain, Mil d 03/28/21 (1-3) #30 tabs Allergies Allergy/AdvReac Type Severity Reaction Status Date / Time No Known Drug Allergies Allergy Verified 11/01/24 06:22 Review of Systems Review of Systems ROS Unobtainable: All systems reviewed & are unremarkable except as noted in HPI and below Patient History Medical History (Updated 11/01/24 @ 06:46 by Moisés Santana DO) Abnormal Pap smear of cervix (~1999) Genital herpes (~07/2003) AMA (advanced maternal age) multigravida 35+ SAB (spontaneous ) (~2007) Heart palpitations (~2017) (spontaneous vaginal delivery) Surgical History (Updated 10/28/20 @ 14:25 by Juliet Cole RN) History of removal of skin mole (~2019) S/P dilation and curettage (~2007) Family History (Updated 11/01/20 @ 20:43 by Margot Teran) Father Alcohol abuse by father Mother Diabetes mellitus Grandfather Stroke Grandmother Cancer Breast cancer Grandfather No problems noted. Grandmother Dementia Sister Twin Social History marital status: number of children: 5 household members: spouse and children lives independently: Yes caregiver/support person: No housing: house pets and animals: Yes (2 dogs: safe.) education level: high school occupational status: unemployed current occupational exposures/hazards: No special jacqueline needs: No seatbelt use: always do you feel safe at home: Yes Tobacco: How many years used: 2 quit status: quit date established second hand exposure: Yes alcohol intake: current substance use type: does not use during the past year weight has: remained stable well-balanced diet: daily or most days daily servings fruits/ve-4 caffeine: Yes (X 1 per day) eating out: 4 or more times/week Type(s) of exercise: walking, bicycling and normal ROM and activity frequency: daily Smoking Status: Never smoker alcohol intake frequency: holidays/special occasions only Exam Narrative Exam Narrative: GENERAL: [38] year old patient appears stated age. Well-developed patient, in mild distress. Anxious appearing HEAD: Atraumatic. Normocephalic. EYES: Pupils equal round and reactive. Extraocular motions intact. No scleral icterus. No injection or drainage. NECK: Trachea midline. Non tender CARDIOVASCULAR: Tachycardic but Regular rate and rhythm without murmurs, gallops, or rubs. RESPIRATORY: Clear to auscultation. Breath sounds equal bilaterally. No wheezes, rales, or rhonchi. NEURO: AOx3. GCS 15 nonfocal neuro exam SKIN: No rash or erythema of visible areas Initial Vital Signs Initial Vital Signs: Vital Signs Temperature 97.9 F 11/01/24 06:22 Pulse Rate 103 H 11/01/24 06:22 Respiratory Rate 20 11/01/24 06:22 Blood Pressure 165/86 H 11/01/24 06:22 Pulse Oximetry 98 11/01/24 06:22 Oxygen Delivery Method Room Air 11/01/24 06:22 Course Orders Ordered: ED Orders 11/01/24 06:20 XR elbow LT min 3V Stat Discontinued Medications Acetaminophen (Acetaminophen 325 Mg Tablet) 650 mg PO NOW ONE Stop: 11/01/24 06:21 Last Admin: 11/01/24 06:31 Dose: Not Given Documented By: CALVIN Ketorolac Tromethamine (Ketorolac 30 Mg/Ml Vial) 15 mg IM NOW ONE Stop: 11/01/24 06:21 Last Admin: 11/01/24 06:31 Dose: Not Given Documented By: CALVIN Vital Signs Vital signs: Vital Signs - 8 hr 11/01/24 06:22 Temperature 97.9 F Pulse Rate 103 H Respiratory Rate 20 Blood Pressure 165/86 H Pulse Oximetry 98 Oxygen Delivery Method Room Air MDM - Overdose MDM Narrative Medical decision making narrative: Vital signs nurse triage note medication list previous ER visits all reviewed. Patient given Ativan 1 mg p.o. x1 here. Patient was reassured that 4 tablets of Tylenol 500 mg as well below the threshold of the maximum amount to be taken over 24 hour. Differential diagnosis includes accidental ingestion, anxiety attack, acute stress disorder. Naloxone at Discharge Meets criteria for naloxone at discharge?: No Discharge Plan Departure Patient Disposition: Home Clinical Impression: Anxiety Accidental drug ingestion Qualifiers: Encounter type: initial encounter Qualified Code(s): T50.901A - Poisoning by unspecified drugs, medicaments and biological substances, accidental (unintentional), initial encounter Instructions: DI for Accidental Ingestion -- Adult Activity Restrictions/Additional Instructions: Return with new or worsening symptoms. Prescriptions: No Action prenat.vits,demetris,[id number] Tablet 1 tab PO DAILY acetaminophen 325 mg Tablet 650 mg PO Q6HR PRN (Reason: Pain, Mild (1-3)) Qty: 30 0RF ibuprofen 600 mg Tablet 600 mg PO Q6HR PRN (Reason: Pain, Mild (1-3)) Qty: 30 0RF Referrals: Tanya Archibald MD [Primary Care Provider, Family Practice] Stand Alone Forms: Patient Portal/API
[2024-11-01] MEDS: LORazepam 0.5 MG TABLET 1 MG PO (06:54)
== END 2024-11-01 06:59 | disposition home or self-care (01) ==
PROVIDERS: Emergency Provider Family Medicine; PCP Family Medicine
DX: F41.9 Anxiety disorder, unspecified (principal); T50.901A Poisoning by unspecified drugs, medicaments and biological substances, accidental (unintentional), initial encounter
CPT/HCPCS: 99283